=== PATIENT | female | born 1955 | race Caucasian/White ===

== ENCOUNTER 2017-03-06 22:10 | Emergency (ER) | payer OTHER ==
[2017-03-06] MEDS ORDERED: Sodium Chloride 0.9% 10 ML Syringe FLUSH PRN (22:29)
[2017-03-06] MEDS ORDERED: Nitroglycerin 2% Oint 1 GM UD Packet TOP ONE (22:30)
[2017-03-06] MEDS ORDERED: Aspirin 81 MG Tab.Chew PO ONE (22:30)
[2017-03-06] MEDS ORDERED: Labetalol 100 MG/20 ML MDV IVPUSH ONE (22:30)
[2017-03-06] MEDS ORDERED: LORazepam 2 MG/ML SDV IVPUSH ONE (22:31)
--- NOTE | 2017-03-07 00:02 | EDM.PDOC ---
ED HPI GENERAL MEDICAL PROBLEM - General Chief Complaint: Chest Pain Stated Complaint: chest pain Time Seen by Provider: 03/06/17 22:20 Source of Information: Reports: Patient, RN Notes Reviewed - History of Present Illness INITIAL COMMENTS - FREE TEXT/NARRATIVE: 61-year-old female comes in with left lower anterior chest discomfort that began this evening while doing dishes. She describes this an achy type discomfort. She states she tried taking a shower and resting for a period of time but the pain did not go away. She then did check her blood pressure and that was tremendously high. They than decided they needed to come here to the ED to have this all checked out. She continues to have achy discomfort of the left lower anterior chest. She states she did have a brief episode of pain radiating down into the left arm at that is gone. She does not feel short of breath. There's been no abdominal pain nausea or vomiting. She has not been coughing any more than usual. No recent fever or chills. She does have history of hypertension. No known history for coronary artery disease or diabetes. She does not smoke. Chest Pain Score (Numeric/FACES): 6 - Related Data Allergies Allergy/AdvReac Type Severity Reaction Status Date / Time propoxyphene Allergy Cannot Verified 03/06/17 22:22 Remember sulfamethoxypyridazine Allergy Cannot Verified 03/06/17 22:22 Remember Home Meds: Home Meds . 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: - Past Surgical History GI Surgical History: Reports: Appendectomy, Cholecystectomy Female Surgical History: Reports: Section Social & Family History - Tobacco Use Smoking Status *Q: Never Smoker Second Hand Smoke Exposure: No - Caffeine Use Caffeine Use: Reports: Coffee - Recreational Drug Use Recreational Drug Use: No ED ROS GENERAL - Review of Systems Review Of Systems: See Below Constitutional: Denies: Fever, Chills, Diaphoresis HEENT: Denies: Sinus Problem, Throat Pain Respiratory: Denies: Shortness of Breath, Wheezing, Pleuritic Chest Pain, Cough Cardiovascular: Reports: Chest Pain, Palpitations GI/Abdominal: Denies: Abdominal Pain, Nausea, Vomiting Musculoskeletal: Reports: Shoulder Pain, Arm Pain (Brief, gone brief, gone). Denies: Leg Pain, Joint Pain Skin: Reports: No Symptoms Neurological: Reports: No Symptoms ED EXAM, GENERAL - Physical Exam Exam: See Below General Appearance: Alert, Anxious, Moderate Distress Eye Exam: Bilateral Eye: PERRL Throat/Mouth: Normal Inspection Head: Atraumatic. No: Facial Swelling Neck: Supple, Full Range of Motion Respiratory/Chest: No Respiratory Distress, Lungs Clear, Normal Breath Sounds Cardiovascular: Regular Rate, Rhythm GI/Abdominal: Soft, Non-Tender Back Exam: No: CVA Tenderness (L), CVA Tenderness (R) Extremities: Normal Inspection. No: Pedal Edema, Leg Pain Neurological: Alert, Oriented, No Motor/Sensory Deficits Skin Exam: Warm, Dry, Intact, Normal Color, No Rash EKG INTERPRETATION EKG Date: 03/06/17 Rhythm: NSR [employer]: Normal P-Wave: Present QRS: Normal ST-T: Depressed (Slight ST depression in V4 and V5.) Course - Vital Signs Last Recorded V/S: Last Vital Signs Temp 98.1 F 03/06/17 22:16 Pulse 7 L 03/06/17 22:52 Resp 17 03/06/17 22:16 BP 142/85 H 03/06/17 22:52 Pulse Ox 100 03/06/17 22:16 - Orders/Labs/Meds Orders: Active Orders 24 hr Category Date Time Status EKG 12 Lead [EKG Documentation Completion] [RC] STAT Care 03/06/17 22:29 Active EKG Documentation Completion [RC] ASDIRECTED Care 03/06/17 22:30 Active Peripheral IV Care [RC] . DIRECTED Care 03/06/17 22:30 Active Chest 1V Frontal [CR] Stat Exams 03/06/17 22:29 Taken Sodium Chloride 0.9% [Saline Flush] Med 03/06/17 22:29 Active 10 ml FLUSH ASDIRECTED PRN Peripheral IV Insertion Adult [OM.PC] Stat Oth 03/06/17 22:30 Ordered EKG 12 Lead [EK] Stat Ther 03/06/17 22:29 Ordered Medication Orders Sodium Chloride (Saline Flush) 10 ml FLUSH ASDIRECTED PRN PRN Reason: Keep Vein Open Last Admin: 03/06/17 22:38 Dose: 10 ml Labs: Laboratory Tests 01/16/18 01/16/18 01/17/18 Range/Units 22:25 22:48 00:30 WBC 5.85 (3.98-10.04) K/mm3 RBC 5.05 (3.98-5.22) M/mm3 Hgb 15.1 (11.2-15.7) gm/L Hct 44.6 (34.1-44.9) % MCV 88.3 (79.4-94.8) fl MCH 29.9 (25.6-32.2) pg MCHC 33.9 (32.2-35.5) g/dl RDW Std Deviation 40.4 (36.4-46.3) fL Plt Count 184 (182-369) K/mm3 MPV 12.0 (9.4-12.3) fl Neut % (Auto) 56.8 (34.0-71.1) % Lymph % (Auto) 32.0 (19.3-51.7) % [place] % (Auto) 8.0 (4.7-12.5) % Eos % (Auto) 2.7 (0.7-5.8) Baso % (Auto) 0.3 (0.1-1.2) % Neut # (Auto) 3.32 (1.56-6.13) K/mm3 Lymph # (Auto) 1.87 (1.18-3.74) K/mm3 [place] # (Auto) 0.47 H (0.24-0.36) K/mm3 Eos # (Auto) 0.16 (0.04-0.36) K/mm3 Baso # (Auto) 0.02 (0.01-0.08) K/mm3 Sodium 146 H (136-145) mEq/L Potassium 3.4 L (3.5-5.1) mEq/L Chloride 109 H (98-107) mEq/L Carbon Dioxide 26 (21-32) mEq/L Anion Gap 14.4 (5-15) BUN 19 H (7-18) mg/dL Creatinine 0.9 (0.55-1.02) mg/dL Est Cr Clr Drug Dosing 52.57 mL/min Estimated GFR (MDRD) > 60 (>60) mL/min BUN/Creatinine Ratio 21.1 H (14-18) Glucose 132 H (74-106) mg/dL Calcium 9.8 (8.5-10.1) mg/dL Total Bilirubin 0.3 (0.2-1.0) mg/dL AST 18 (15-37) U/L ALT 27 (14-59) U/L Alkaline Phosphatase 64 (46-116) U/L Troponin I < 0.017 < 0.017 (0.00-0.056) ng/mL Total Protein 7.2 (6.4-8.2) g/dl Albumin 4.2 (3.4-5.0) g/dl Globulin 3.0 gm/dL Albumin/Globulin Ratio 1.4 (1-2) Meds: Medications Generic Name Dose Route Start Last Admin Trade Name Freq PRN Reason Stop Dose Admin Sodium Chloride 10 ml 03/06/17 22:29 03/06/17 22:38 Saline Flush FLUSH 10 ml ASDIRECTED PRN Administration Keep Vein Open Discontinued Medications Generic Name Dose Route Start Last Admin Trade Name Freq PRN Reason Stop Dose Admin Aspirin 324 mg 03/06/17 22:30 03/06/17 22:36 Aspirin PO 03/06/17 22:31 324 mg ONETIME ONE Administration Labetalol HCl 20 mg 03/06/17 22:30 03/06/17 22:52 Normodyne IVPUSH 03/06/17 22:31 10 mg ONETIME ONE Administration Protocol Lorazepam 0.25 mg 03/06/17 22:31 03/06/17 22:37 Ativan IVPUSH 03/06/17 22:32 0.25 mg ONETIME ONE Administration Nitroglycerin 1 gm 03/06/17 22:30 03/06/17 22:40 Nitro-Bid 2% TOP 03/06/17 22:31 1 gm ONETIME ONE Administration - Re-Assessments/Exams Free Text/Narrative Re-Assessment/Exam: 03/07/17 00:02. EKG showed slight ST depression in V4 and V5. Is extremely anxious on arrival blood pressure very high in the 200/100 range. We did give her aspirin 324 by mouth, Ativan 0.25 mg IV, labetalol 10 mg IV and also applied nitro paste. With that discomfort has gone away. Troponin did come back negative. Other labs are good. Chest x-ray looks normal. Her states that she has been getting occasional achy discomfort of the left shoulder and the left lateral chest for quite a long time, she often does get this when standing doing dishes sort may be some type of a positional finger pinched nerve. We are going to do a 2 hour troponin. Her blood pressure has really come down nicely and she is much more relaxed with the above treatment. Departure - Departure Time of Disposition: Disposition: Home, Self-Care 01 Condition: Fair Clinical Impression: Atypical chest pain Hypertension Qualifiers: Hypertension type: essential hypertension Qualified Code(s): I10 - Essential ( primary) hypertension Referrals: Samia Ugarte MD [Primary Care Provider] - Forms: ED Department Discharge Additional Instructions: Continue current medications as prescribed, continue daily aspirin. Follow-up with Dr. Ugarte, next available appointment. Call later this morning once clinic is open for appointment. Return to ED as discussed if symptoms worsening in any way. - My Orders Last 24 Hours: My Active Orders 03/06/17 22:29 EKG 12 Lead [EKG Documentation Completion] [RC] STAT Chest 1V Frontal [CR] Stat Sodium Chloride 0.9% [Saline Flush] 10 ml FLUSH ASDIRECTED PRN EKG 12 Lead [EK] Stat 03/06/17 22:30 EKG Documentation Completion [RC] ASDIRECTED Peripheral IV Care [RC] . DIRECTED Peripheral IV Insertion Adult [OM.PC] Stat - Assessment/Plan Last 24 Hours: My Active Orders 03/06/17 22:29 EKG 12 Lead [EKG Documentation Completion] [RC] STAT Chest 1V Frontal [CR] Stat Sodium Chloride 0.9% [Saline Flush] 10 ml FLUSH ASDIRECTED PRN EKG 12 Lead [EK] Stat 03/06/17 22:30 EKG Documentation Completion [RC] ASDIRECTED Peripheral IV Care [RC] . DIRECTED Peripheral IV Insertion Adult [OM.PC] Stat
--- NOTE | 2017-03-07 06:48 | CR ---
Chest: Frontal view of the chest was obtained. Comparison: No prior chest x-ray. Heart size appears at the upper limits of normal. Tortuous thoracic aorta is seen. Nodule is identified within the right mid to lower lung most likely representing granuloma. Lungs otherwise are clear. Impression: 1. Incidental findings. Nothing acute is appreciated. Diagnostic code #2
== END 2017-03-07 01:30 | disposition home or self-care (01) ==
LOC: JD.ED 22:10
DX: R07.89 Other chest pain (principal); I10 Essential (primary) hypertension; Z88.8 Allergy status to other drugs, medicaments and biological substances; Z88.2 Allergy status to sulfonamides
CPT/HCPCS: 36415; 71045; 80053; 84484; 85025; 93005; 96374; 96375; 99285; A9270; J2060; J7050; 93010